=== PATIENT | female | born 1985 | race Caucasian/White ===

== ENCOUNTER 2021-03-03 17:34 | Emergency (ER) | payer MEDICAID ==
[2021-03-03] MEDS ORDERED: Acetaminophen/HYDROcodone 325-10 MG Tab PO ONE (17:35)
[2021-03-03] MEDS ORDERED: HYDROmorphone 1 MG/ML Syringe IVPUSH ONE (18:15)
--- NOTE | 2021-03-03 18:25 | EDM.PDOC ---
<Sathish Almeida - Last Filed: 03/03/21 18:15> ED HPI GENERAL MEDICAL PROBLEM - General Chief Complaint: Abdominal Pain Stated Complaint: ambulance Time Seen by Provider: 03/03/21 18:15 Source of Information: Reports: Patient History Limitations: Reports: No Limitations - History of Present Illness INITIAL COMMENTS - FREE TEXT/NARRATIVE: This 35 yo female patient was brought to the ED by [facility] due to pelvic pain. The patient reports her symptoms started yesterday and have been getting worse since the time of onset. The patient reports she has taken about 9 Tylenol (650 mg) today with little to no symptom relief. The patient reports she did not attempt to go to the clinic hoping her symptoms would go away. The patient reports there is no possibilities of . The patient reports the pain is from her "lady bits" through her pelvis. The patient reports she has had small bowel movements. The patient denies pain with urination. The patient denies any previous abdominal surgeries. Onset Date: 03/02/21 Duration: Constant, Getting Worse Location: Reports: Pelvis Quality: Reports: Ache, Sharp, Stabbing Severity: Severe Improves with: Reports: Rest Worsens with: Reports: Movement Associated Symptoms: Reports: No Other Symptoms Abdominal Pain Score (Numeric/FACES): 7 - Related Data Allergies Allergy/AdvReac Type Severity Reaction Status Date / Time No Known Allergies Allergy Verified 03/03/21 17:55 Home Meds: Home Meds . [No Known Home Meds] 03/03/21 [History] Social & Family History - Tobacco Use Tobacco Use Status *Q: Current Every Day Tobacco User Years of Tobacco use: 22 Packs/Tins Daily: 1 - Caffeine Use Caffeine Use: Reports: Soda - Recreational Drug Use Recreational Drug Use: Yes Recreational Drug Type: Reports: Marijuana/Hashish ED ROS GENERAL - Review of Systems Review Of Systems: Comprehensive ROS is negative, except as noted in HPI. ED EXAM, GI/ABD - Physical Exam Exam: See Below Exam Limited By: No Limitations General Appearance: Alert, WD/WN, Moderate Distress, Obese Eyes: Bilateral: Normal Appearance, EOMI Ears: Normal External Exam, Normal Canal, Hearing Grossly Normal, Normal TMs Nose: Normal Inspection, Normal Mucosa, No Blood Throat/Mouth: Normal Inspection, Normal Lips, Normal Teeth, Normal Gums, Normal Oropharynx, Normal Voice, No Airway Compromise Head: Atraumatic, Normocephalic Neck: Normal Inspection, Supple, Non-Tender, Full Range of Motion Respiratory/Chest: No Respiratory Distress, Lungs Clear, Normal Breath Sounds, No Accessory Muscle Use, Chest Non-Tender Cardiovascular: Normal Peripheral Pulses, Regular Rate, Rhythm, No Edema, No Gallop, No JVD, No Murmur, No Rub GI/Abdominal Exam: Tender (diffuse abdominal pain ) Back Exam: Normal Inspection, Full Range of Motion, NT Extremities: Normal Inspection, Normal Range of Motion, Non-Tender, Normal Capillary Refill, No Pedal Edema Neurological: Alert, Oriented, CN II-XII Intact, Normal Cognition Psychiatric: Normal Affect, Normal Mood Skin Exam: Warm, Dry, Intact, Normal Color, No Rash Lymphatic: No Adenopathy Departure - Departure Disposition: Home, Self-Care 01 Clinical Impression: STD (sexually transmitted disease), Trichomonal cervicitis, Pyelonephritis, Sciatica, Methamphetamine abuse - Discharge Information Instructions: Trichomoniasis Referrals: PCP,None [Primary Care Provider] - Forms: ED Department Discharge Additional Instructions: alternate tylenol 500mg and ibuprofen 600mg every 4 hours as needed hydrocodone/10/325 one every 4 hours as needed for severe maia #3 Flagyl 250 mg three times daily for one week cipro 500mg one twice daily for one week clinic recheck this week diet as tolerated increase fluids don't use meth Sepsis Event Note (ED) - Evaluation Sepsis Screening Result: No Definite Risk <Ludy Melvin - Last Filed: 03/05/21 02:32> ED EXAM, GI/ABD - Physical Exam (Female) Exam: Normal External Exam, Adnexal Tenderness, Cervical Discharge (scant bloody), Cervix Motion Tenderness, Vaginal Discharge (scant yelooo) Back Exam: Other (right SI tenderness). No: CVA Tenderness (L), CVA Tenderness (R) Psychiatric: Anxious Course - Vital Signs Last Recorded V/S: Last Vital Signs Temp 98.7 F 03/03/21 17:51 Pulse 102 H 03/03/21 17:51 Resp 14 03/03/21 17:51 BP 166/88 H 03/03/21 17:51 Pulse Ox 96 03/03/21 17:51 - Orders/Labs/Meds Labs: Laboratory Tests 03/03/21 03/03/21 03/03/21 Range/Units 06:20 06:20 06:20 WBC 13.4 H (5.0-10.0) 10^3/uL RBC 4.92 (4.2-5.4) 10^6/uL Hgb 13.7 (12.0-16.0) g/dL Hct 40.9 (37.0-47.0) % MCV 83.1 (80-100) fL MCH 27.8 (27.0-34.0) pg MCHC 33.5 (33.0-35.0) g/dL Plt Count 421 (150-450) 10^3/uL Neut % (Auto) 73.6 (42.2-75.2) % Lymph % (Auto) 18.2 L (20.5-50.1) % [place] % (Auto) 6.6 (2-8) % Eos % (Auto) 1.4 (1.0-3.0) % Baso % (Auto) 0.2 (0.0-1.0) % Sodium 139 (136-145) mmol/L Potassium 3.9 (3.5-5.1) mmol/L Chloride 103 (98-107) mmol/L Carbon Dioxide 25 (21-32) mmol/L Anion Gap 14.9 H (7-13) mEq/L BUN 12 (7-18) mg/dL Creatinine 0.79 (0.55-1.02) mg/dL Est Cr Clr Drug Dosing 92.16 mL/min Estimated GFR (MDRD) > 60 BUN/Creatinine Ratio 15.2 (No establ ref range) Glucose 124 H (70-99) mg/dL Lactic Acid 1.1 (0.4-2.0) mmol/L Calcium 8.9 (8.5-10.1) mg/dL Total Bilirubin 0.3 (0.2-1.0) mg/dL AST 30 (15-37) U/L ALT 40 (14-59) U/L Alkaline Phosphatase 100 (46-116) U/L Total Protein 7.9 (6.4-8.2) g/dL Albumin 3.6 (3.4-5.0) g/dL Globulin 4.3 Albumin/Globulin Ratio 0.8 Urine Color (YELLOW) Urine Appearance (CLEAR) Urine pH (5.0-9.0) Ur Specific Cope (1.005-1.030) Urine Protein (NEGATIVE) Urine Glucose (UA) (NEGATIVE) Urine Ketones (NEGATIVE) Urine Occult Blood (NEGATIVE) Urine Nitrite (NEGATIVE) Urine Bilirubin (NEGATIVE) Urine Urobilinogen (0.2-1.0) mg/dL Ur Leukocyte Esterase (NEGATIVE) Urine RBC (0-5) /HPF Urine WBC (0-5/HPF) /HPF Ur Epithelial Cells (NOT SEEN) /HPF Urine Bacteria (0-FEW/HPF) /HPF Urine HCG, Qual Urine Opiates Screen (NEGATIVE) Ur Oxycodone Screen (NEGATIVE) Urine Methadone Screen (NEGATIVE) Ur Barbiturates Screen (NEGATIVE) U Tricyclic Antidepress (NEGATIVE) Ur Phencyclidine Scrn (NEGATIVE) Ur Amphetamine Screen (NEGATIVE) U Methamphetamines Scrn (NEGATIVE) Urine MDMA Screen (NEGATIVE) U Benzodiazepines Scrn (NEGATIVE) Urine Cocaine Screen (NEGATIVE) U Marijuana (THC) Screen (NEGATIVE) 03/03/21 03/03/21 03/03/21 Range/Units 17:30 17:30 17:30 WBC (5.0-10.0) 10^3/uL RBC (4.2-5.4) 10^6/uL Hgb (12.0-16.0) g/dL Hct (37.0-47.0) % MCV (80-100) fL MCH (27.0-34.0) pg MCHC (33.0-35.0) g/dL Plt Count (150-450) 10^3/uL Neut % (Auto) (42.2-75.2) % Lymph % (Auto) (20.5-50.1) % [place] % (Auto) (2-8) % Eos % (Auto) (1.0-3.0) % Baso % (Auto) (0.0-1.0) % Sodium (136-145) mmol/L Potassium (3.5-5.1) mmol/L Chloride (98-107) mmol/L Carbon Dioxide (21-32) mmol/L Anion Gap (7-13) mEq/L BUN (7-18) mg/dL Creatinine (0.55-1.02) mg/dL Est Cr Clr Drug Dosing mL/min Estimated GFR (MDRD) BUN/Creatinine Ratio (No establ ref range) Glucose (70-99) mg/dL Lactic Acid (0.4-2.0) mmol/L Calcium (8.5-10.1) mg/dL Total Bilirubin (0.2-1.0) mg/dL AST (15-37) U/L ALT (14-59) U/L Alkaline Phosphatase (46-116) U/L Total Protein (6.4-8.2) g/dL Albumin (3.4-5.0) g/dL Globulin Albumin/Globulin Ratio Urine Color Yellow (YELLOW) Urine Appearance Slightly cloudy (CLEAR) Urine pH 6.0 (5.0-9.0) Ur Specific Cope 1.025 (1.005-1.030) Urine Protein Negative (NEGATIVE) Urine Glucose (UA) Negative (NEGATIVE) Urine Ketones Negative (NEGATIVE) Urine Occult Blood Large H (NEGATIVE) Urine Nitrite Negative (NEGATIVE) Urine Bilirubin Negative (NEGATIVE) Urine Urobilinogen 0.2 (0.2-1.0) mg/dL Ur Leukocyte Esterase Small H (NEGATIVE) Urine RBC 5-10 H (0-5) /HPF Urine WBC 30-40 H (0-5/HPF) /HPF Ur Epithelial Cells Many H (NOT SEEN) /HPF Urine Bacteria Many H (0-FEW/HPF) /HPF Urine HCG, Qual Negative Urine Opiates Screen Negative (NEGATIVE) Ur Oxycodone Screen Negative (NEGATIVE) Urine Methadone Screen Negative (NEGATIVE) Ur Barbiturates Screen Negative (NEGATIVE) U Tricyclic Antidepress Negative (NEGATIVE) Ur Phencyclidine Scrn Negative (NEGATIVE) Ur Amphetamine Screen Negative (NEGATIVE) U Methamphetamines Scrn Positive H (NEGATIVE) Urine MDMA Screen Negative (NEGATIVE) U Benzodiazepines Scrn Negative (NEGATIVE) Urine Cocaine Screen Negative (NEGATIVE) U Marijuana (THC) Screen Positive H (NEGATIVE) Meds: Medications Discontinued Medications Generic Name Dose Route Start Last Admin Trade Name Freq PRN Reason Stop Dose Admin Hydrocodone Bitart/Acetaminophen Confirm 03/04/21 01:12 Acetaminophen/Hydrocodone 325-10 Mg Tab Administered 03/04/21 01:13 Dose 3 tab .ROUTE .STK-MED ONE Azithromycin 1,000 mg 03/03/21 21:56 03/03/21 22:07 Azithromycin 250 Mg Tab PO 03/03/21 21:57 1,000 mg ONETIME ONE Administration Hydromorphone HCl 1 mg 03/03/21 18:15 03/03/21 18:19 Hydromorphone 1 Mg/Ml Syringe IVPUSH 03/03/21 18:16 1 mg ONETIME ONE Administration Hydromorphone HCl 0.5 mg 03/03/21 19:45 03/03/21 20:08 Hydromorphone 0.5 Mg/0.5 Ml Syringe IVPUSH 03/03/21 19:46 0.5 mg ONETIME ONE Administration Sodium Chloride 1,000 mls @ 999 mls/hr 03/03/21 19:37 03/03/21 20:08 Normal Saline IV 03/03/21 20:37 999 mls/hr .BOLUS ONE Administration Ceftriaxone Sodium 2 gm/ 100 mls @ 200 mls/hr 03/03/21 21:55 03/03/21 22:07 Sodium Chloride IV 03/03/21 22:24 200 mls/hr ONETIME ONE Administration Metronidazole 500 mg/ Premix 100 mls @ 100 mls/hr 03/03/21 22:07 03/03/21 22:59 IV 03/03/21 23:06 100 mls/hr ONETIME ONE Administration Iopamidol 100 ml 03/03/21 19:37 03/03/21 20:06 Iopamidol 612 Mg/Ml 100 Ml Bottle IVPUSH 03/03/21 19:38 100 ml ONETIME ONE Administration Ketorolac Tromethamine 30 mg 03/03/21 21:47 03/03/21 21:57 Ketorolac 30 Mg/Ml Sdv IVPUSH 03/03/21 21:48 30 mg ONETIME ONE Administration Lorazepam 1 mg 03/03/21 21:22 03/03/21 21:26 Lorazepam 2 Mg/Ml Sdv IVPUSH 03/03/21 21:23 1 mg ONETIME ONE Administration Departure - Departure Time of Disposition: 00:51 Condition: Good - Discharge Information *PRESCRIPTION DRUG MONITORING PROGRAM REVIEWED*: No *COPY OF PRESCRIPTION DRUG MONITORING REPORT IN PATIENT BENITO: No
[2021-03-03 18:43] LABS: AMPHETAMINES,URINE NEGATIVE (NEGATIVE); BARBITURATES,URINE NEGATIVE (NEGATIVE); BENZODIAZEPINE,URINE NEGATIVE (NEGATIVE); MDMA (ECSTASY), URINE NEGATIVE (NEGATIVE); METHADONE,URINE NEGATIVE (NEGATIVE); METHAMPHETAMINES,URINE POSITIVE (NEGATIVE); OPIATES,URINE NEGATIVE (NEGATIVE); OXYCODONE,URINE NEGATIVE (NEGATIVE); PHENCYCLIDINE,URINE NEGATIVE (NEGATIVE); TCA,URINE NEGATIVE (NEGATIVE)
[2021-03-03 19:05] LABS: ANION GAP 14.9 mEq/L (7-13); CHLORIDE,CL 103 mmol/L (98-107); SODIUM,NA 139 mmol/L (136-145)
[2021-03-03] MEDS ORDERED: Sodium Chloride 0.9% 1,000 ML IV ONE (19:37)
[2021-03-03] MEDS ORDERED: Iopamidol 612 MG/ML 100 ML Bottle IVPUSH ONE (19:37)
[2021-03-03] MEDS ORDERED: HYDROmorphone 0.5 MG/0.5 ML Syringe IVPUSH ONE (19:45)
--- NOTE | 2021-03-03 20:41 | CT ---
PROCEDURE INFORMATION: Exam: CT Abdomen And Pelvis With Contrast Exam date and time: 03/03/2021 7:52 PM Age: 35 years old Clinical indication: Abdominal pain; Generalized; Additional info: Lower abdominal pain pressure TECHNIQUE: Imaging protocol: Computed tomography of the abdomen and pelvis with contrast. Total images: 315 Radiation optimization: All CT scans at this facility use at least one of these dose optimization techniques: automated exposure control; mA and/or kV adjustment per patient size (includes targeted exams where dose is matched to clinical indication); or iterative reconstruction. Contrast material: ISOVUE 300; Contrast volume: 100 ml; Contrast route: INTRAVENOUS (IV); COMPARISON: No relevant prior studies available. FINDINGS: Lungs: There are a few scattered centrilobular ground-glass nodules at the lung bases. Liver: Hepatic steatosis. Gallbladder and bile ducts: Normal. No calcified stones. No ductal dilation. Pancreas: Normal. No ductal dilation. Spleen: Normal. No splenomegaly. Adrenal glands: Normal. No mass. Kidneys and ureters: Normal. No hydronephrosis. Stomach and bowel: Unremarkable. No obstruction. No mucosal thickening. Appendix: No evidence of appendicitis. Intraperitoneal space: Unremarkable. No free air. No significant fluid collection. Vasculature: Unremarkable. No abdominal aortic aneurysm. Lymph nodes: Unremarkable. No enlarged lymph nodes. Urinary bladder: Unremarkable as visualized. Reproductive: Unremarkable as visualized. Bones/joints: Spondylolysis L5. Minimal anterolisthesis. Soft tissues: Unremarkable. IMPRESSION: 1. Few scattered centrilobular ground-glass nodules at the lung bases most likely inflammatory. Suggest follow-up in 3 months. 2. Hepatic steatosis. 3. No acute process within the abdomen/pelvis.
[2021-03-03] MEDS ORDERED: LORazepam 2 MG/ML SDV IVPUSH ONE (21:22)
[2021-03-03] MEDS ORDERED: Ketorolac 30 MG/ML SDV IVPUSH ONE (21:47)
[2021-03-03] MEDS ORDERED: cefTRIAXone 2 GM in Sodium Chloride 0.9% 100 ML IV ONE (21:55)
[2021-03-03] MEDS ORDERED: Azithromycin 250 MG Tab PO ONE (21:56)
[2021-03-03] MEDS ORDERED: metroNIDAZOLE/Normal Saline 500 MG in Premix Bag 100 BAG IV ONE (22:07)
[2021-03-04] MEDS ORDERED: Acetaminophen/HYDROcodone 325-10 MG Tab ONE (01:12)
[2021-03-05 11:57] LABS: C.TRACHOMATIS BY TMA Negative (Negative); N.GONORRHOEAE BY TMA Negative (Negative)
== END 2021-03-04 01:24 | disposition home or self-care (01) ==
LOC: DL.ED 17:34
DX: N12 Tubulo-interstitial nephritis, not specified as acute or chronic (principal); A59.09 Other urogenital trichomoniasis; F15.10 Other stimulant abuse, uncomplicated; A64 Unspecified sexually transmitted disease; M54.31 Sciatica, right side; E66.9 Obesity, unspecified; Z68.42 Body mass index [BMI] 45.0-49.9, adult; Z72.0 Tobacco use
CPT/HCPCS: 36415; 74177; 80053; 80305; 81001; 81025; 83605; 85025; 87040; 87077; 87086; 87210; 87491; 87591; 96365; 96367; 96375; 96376; 99285; A9270; J0696; J1170; J1885; J2060; J3490; J7030; Q9967

== ENCOUNTER 2021-03-04 09:51 | Emergency (ER) | payer MEDICAID ==
[2021-03-04] MEDS ORDERED: metroNIDAZOLE 250 MG Tab PO ONE (10:39)
[2021-03-04] MEDS ORDERED: Ciprofloxacin 500 MG Tab PO ONE (10:39)
--- NOTE | 2021-03-04 10:52 | EDM.PDOC ---
ED HPI GENERAL MEDICAL PROBLEM - General Chief Complaint: RECRUITMENT COORDINATOR Problem Stated Complaint: vaginal pain Time Seen by Provider: 03/04/21 10:35 Source of Information: Reports: Patient History Limitations: Reports: No Limitations - History of Present Illness INITIAL COMMENTS - FREE TEXT/NARRATIVE: This 35 yo female patient was brought to the ED by [facility] due to increased lower abdominal and vaginal pain. This patient was seen with similar symptoms last night (discharged at 0130 this morning). The patient was diagnosed with Trichomoniasis and was treated appropriately while in the ED. The patient took all of the pain medications given to her during the visit, but has not picked up her antibiotics. Onset Date: 03/02/21 Duration: Constant Location: Reports: Abdomen Quality: Reports: Other Severity: Severe Improves with: Reports: None Worsens with: Reports: None Context: Reports: Other Associated Symptoms: Reports: No Other Symptoms - Related Data Allergies Allergy/AdvReac Type Severity Reaction Status Date / Time No Known Allergies Allergy Verified 03/03/21 17:55 Home Meds: Home Meds . [No Known Home Meds] 03/03/21 [History] Past Medical History - Past Health History Medical/Surgical History: Denies Medical/Surgical History Social & Family History - Family History Family Medical History: No Pertinent Family History - Tobacco Use Tobacco Use Status *Q: Never Tobacco User - Caffeine Use Caffeine Use: Reports: None - Recreational Drug Use Recreational Drug Use: Yes Recreational Drug Type: Reports: Methamphetamine ED ROS GENERAL - Review of Systems Review Of Systems: Comprehensive ROS is negative, except as noted in HPI. ED EXAM, RENAL/ - Physical Exam Exam: See Below Exam Limited By: No Limitations General Appearance: Alert, WD/WN, Moderate Distress Eye Exam: Bilateral Eye: EOMI, Normal Inspection, PERRL Ears: Normal External Exam, Normal Canal, Hearing Grossly Normal, Normal TMs Nose: Normal Inspection, Normal Mucosa, No Blood Throat/Mouth: Normal Inspection, Normal Lips, Normal Teeth, Normal Gums, Normal Oropharynx, Normal Voice, No Airway Compromise Head: Atraumatic, Normocephalic Neck: Normal Inspection, Supple, Non-Tender, Full Range of Motion Respiratory/Chest: No Respiratory Distress, Lungs Clear, Normal Breath Sounds, No Accessory Muscle Use, Chest Non-Tender Cardiovascular: Normal Peripheral Pulses, Regular Rate, Rhythm, No Edema, No Gallop, No JVD, No Murmur, No Rub GI/Abdominal: Guarding, Tender (Female) Exam: Deferred Rectal (Female) Exam: Deferred Back Exam: Normal Inspection, Full Range of Motion, NT Extremities: Normal Inspection, Normal Range of Motion, Non-Tender, Normal Capillary Refill, No Pedal Edema Neurological: Alert, Oriented, CN II-XII Intact, Normal Cognition, Normal Gait, Normal Reflexes, No Motor/Sensory Deficits Psychiatric: Normal Affect Skin Exam: Warm, Dry, Intact, Normal Color, No Rash Lymphatic: No Adenopathy Course - Vital Signs Last Recorded V/S: Last Vital Signs Temp 98.5 F 03/04/21 10:03 Pulse 94 03/04/21 10:03 Resp 16 03/04/21 10:03 BP 136/108 H 03/04/21 10:03 Pulse Ox 100 03/04/21 10:03 - Orders/Labs/Meds Labs: Laboratory Tests 03/04/21 03/04/21 03/04/21 Range/Units 11:12 11:12 11:12 WBC 15.3 H (5.0-10.0) 10^3/uL RBC 4.58 (4.2-5.4) 10^6/uL Hgb 12.9 (12.0-16.0) g/dL Hct 37.8 (37.0-47.0) % MCV 82.5 (80-100) fL MCH 28.2 (27.0-34.0) pg MCHC 34.1 (33.0-35.0) g/dL Plt Count 387 (150-450) 10^3/uL Neut % (Auto) 74.6 (42.2-75.2) % Lymph % (Auto) 13.9 L (20.5-50.1) % [place] % (Auto) 10.7 H (2-8) % Eos % (Auto) 0.6 L (1.0-3.0) % Baso % (Auto) 0.2 (0.0-1.0) % Sodium 131 L (136-145) mmol/L Potassium 3.8 (3.5-5.1) mmol/L Chloride 97 L (98-107) mmol/L Carbon Dioxide 22 (21-32) mmol/L Anion Gap 15.8 H (7-13) mEq/L BUN 8 (7-18) mg/dL Creatinine 0.74 (0.55-1.02) mg/dL Est Cr Clr Drug Dosing TNP Estimated GFR (MDRD) > 60 BUN/Creatinine Ratio 10.8 (No establ ref range) Glucose 109 H (70-99) mg/dL Lactic Acid 1.0 (0.4-2.0) mmol/L Calcium 8.7 (8.5-10.1) mg/dL Total Bilirubin 0.5 (0.2-1.0) mg/dL AST 26 (15-37) U/L ALT 40 (14-59) U/L Alkaline Phosphatase 96 (46-116) U/L Total Protein 7.6 (6.4-8.2) g/dL Albumin 3.4 (3.4-5.0) g/dL Globulin 4.2 Albumin/Globulin Ratio 0.8 Meds: Medications Discontinued Medications Generic Name Dose Route Start Last Admin Trade Name Freq PRN Reason Stop Dose Admin Ciprofloxacin 500 mg 03/04/21 10:39 03/04/21 11:08 Ciprofloxacin 500 Mg Tab PO 03/04/21 10:40 500 mg ONETIME ONE Administration Metronidazole 500 mg 03/04/21 10:39 03/04/21 11:08 Metronidazole 250 Mg Tab PO 03/04/21 10:40 500 mg ONETIME ONE Administration Oxycodone/Acetaminophen 1 tab 03/04/21 11:33 03/04/21 11:49 Acetaminophen/Oxycodone 325-5 Mg Tab PO 03/04/21 11:34 1 tab ONETIME ONE Administration Departure - Departure Time of Disposition: 12:34 Disposition: Home, Self-Care 01 Condition: Fair Clinical Impression: Pyelonephritis, STD (sexually transmitted disease), Trichomonal cervicitis - Discharge Information *PRESCRIPTION DRUG MONITORING PROGRAM REVIEWED*: Not Applicable *COPY OF PRESCRIPTION DRUG MONITORING REPORT IN PATIENT BENITO: Not Applicable Instructions: Pyelonephritis, Adult, [id number], Sexually Transmitted Disease, [id number] Forms: ED Department Discharge Care Plan Goals: The patient was advised of the lab results received today. The patient was given an oral dose of Cipro, Metronidazole and Percocet during the visit. The patient was encouraged to take her medications as prescribed last night. If the patient has any additional symptoms or concerns, the patient should either return to the emergency department or visit her primary care facility. Sepsis Event Note (ED) - Focused Exam Vital Signs: Vital Signs Temp Pulse Resp BP Pulse Ox 03/04/21 10:03 98.5 F 94 16 136/108 H 100
[2021-03-04] MEDS ORDERED: Acetaminophen/oxyCODONE 325-5 MG Tab PO ONE (11:33)
[2021-03-04 12:14] LABS: ANION GAP 15.8 mEq/L (7-13); CHLORIDE,CL 97 mmol/L (98-107); SODIUM,NA 131 mmol/L (136-145)
== END 2021-03-04 13:00 | disposition home or self-care (01) ==
LOC: DL.ED 09:51
DX: N12 Tubulo-interstitial nephritis, not specified as acute or chronic (principal); A64 Unspecified sexually transmitted disease; A59.09 Other urogenital trichomoniasis
CPT/HCPCS: 36415; 80053; 83605; 85025; 99284; A9270

== ENCOUNTER 2024-09-15 19:44 | Emergency (ER) | payer MEDICAID ==
[2024-09-15] MEDS: Lidocaine 2% Viscous Solution 15 ML UD PO ONE (20:09)
[2024-09-15] MEDS: Diphtheria,Pertussis(Acell),Tetanus Vaccine 0.5 ML Syringe IM ONE (20:16)
== END 2024-09-15 20:23 | disposition home or self-care (01) ==
LOC: DL.ED 19:44
DX: S61.011A Laceration without foreign body of right thumb without damage to nail, initial encounter (principal); W26.0XXA Contact with knife, initial encounter
CPT/HCPCS: 90471; 90715; 99282; A9270